=== PATIENT | male | born 1980 | race Two or more races ===

== ENCOUNTER 2021-03-21 09:58 | Emergency (ER) | payer OTHER ==
[~2021-03-21] VITALS: Ht 175.3 cm; Wt 102.1 kg
[2021-03-21 10:06] VITALS: BP 127/90
[2021-03-21] MEDS ORDERED: CLIN300C12 PO (10:21)
[2021-03-21] MEDS ORDERED: CLINDAMYCIN HCL 150 MG CAPSULE ONE (10:28)
[2021-03-21] MEDS ORDERED: CLINDAMYCIN HCL 150 MG CAPSULE PO ONE (10:30)
--- NOTE | 2021-03-21 10:30 | NUR ---
antibiotic clindamycin 300mg given to patient.
--- NOTE | 2021-03-21 10:31 | NUR ---
Patient discharged to home in stable condition. Written and verbal after care instructions given. Patient verbalizes understanding of instruction.
== END 2021-03-21 10:29 | disposition home or self-care (01) ==
LOC: ER 10:04
DX: S60.561A Insect bite (nonvenomous) of right hand, initial encounter (principal); L03.113 Cellulitis of right upper limb; Z79.899 Other long term (current) drug therapy; W57.XXXA Bitten or stung by nonvenomous insect and other nonvenomous arthropods, initial encounter; Y93.89 Activity, other specified; Y92.89 Other specified places as the place of occurrence of the external cause; Y99.8 Other external cause status